=== PATIENT | male | born 1955 | race Caucasian/White ===

== ENCOUNTER 2018-11-04 11:37 | Inpatient (IN) ==
[2018-11-04] MEDS ORDERED: LEVOFLOXACIN INJ 750 MG in PREMIX 1 EACH IV STA (12:49)
[2018-11-04 13:40] LABS: Apearance,Urine Slightly Hazy (Clear); Bilirubin,Urine Negative (Negative); Blood, Urine Negative (Negative); Glucose,Urine (UA) 50 mg/dL (Negative); Ketones,Urine 5 mg/dL (Negative); Nitrite,Urine Negative (Negative); Protein,Urine 30 MG/DL; Urine Color Yellow (Yellow); Urine Specific Gravity 1.013 (1.001-1.035)
[2018-11-04 13:54] LABS: RBC,Urine 0-3 /HPF (0-4); Squamous Epithelial Cell,Urine Few /HPF (0-10)
[2018-11-04 13:56] LABS: Basophils % 0.2 % (0.0-0.8); Eosinophils % 0.1 % (0.00-10.9); Hematocrit 41.3 VOL% (42.0-52.0); Hemoglobin 14.3 GM/DL (14.0-18.0); Immature Granulocytes % 0.7 %; Immature Granulocytes Absolute 0.11 #; Lymphocytes # 0.9 10*3/uL (1.4-4.0); Lymphocytes % 6.3 % (21.2-54.2); Mean Corpuscular HGB Conc 34.6 GM/DL (32-36); Mean Corpuscular Volume 93.9 FL (87-102); Monocytes % 7.1 % (1.7-12.7); Neutrophils % 85.6 % (38.7-73.9); Platelet Count 272 T/CUMM (130-400); Red Cell Distribution Width 12.8 % (9.3-17.3); White Blood Count 14.9 T/CUMM (4-12)
[2018-11-04 14:13] LABS: Calcium 9.2 MG/DL (8.5-10.1); Osmolality,Calculated 252.4 MOS/KG (273-304)
[2018-11-04] MEDS ORDERED: SODIUM CHLORIDE 0.9% 1,000 ML IV STA (15:39)
[2018-11-04] MEDS ORDERED: ONDANSETRON 4 MG/2 ML VIAL IV PRN (16:22)
[2018-11-04] MEDS ORDERED: DOCUSATE SODIUM 100 MG CAPSULE PO PRN (16:22)
[2018-11-04] MEDS ORDERED: ACETAMINOPHEN 325 MG TABLET PO PRN (16:22)
[2018-11-04] MEDS ORDERED: ATROPINE 1 % OPH SOLN 5 ML BOTTLE SL PRN (16:26)
[2018-11-04] MEDS: SODIUM CHLORIDE 0.9% 1,000 ML IV SCH (18:10)
[2018-11-04] MEDS: PIPERACILLIN/TAZOBACTAM 3,375 MG in SODIUM CHLORIDE 0.9% 100 ML IV SCH (18:16)
[2018-11-04] MEDS: SCOPOLAMINE 1.5 MG PATCH TRANSDERM SCH (18:24)
[2018-11-04] MEDS: GLYCOPYRROLATE 1 MG TABLET PO SCH (22:00)
[2018-11-05 02:41] LABS: Basophils % 0.2 % (0.0-0.8); Hematocrit 42.3 VOL% (42.0-52.0); Hemoglobin 14.7 GM/DL (14.0-18.0); Immature Granulocytes % 0.6 %; Immature Granulocytes Absolute 0.08 #; Lymphocytes % 7.3 % (21.2-54.2); Mean Corpuscular HGB Conc 34.8 GM/DL (32-36); Mean Corpuscular Volume 95.3 FL (87-102); Monocytes % 8.6 % (1.7-12.7); Neutrophils % 83.3 % (38.7-73.9); Platelet Count 269 T/CUMM (130-400); Red Blood Count 4.44 MC/CUMM (3.8-5.5); Red Cell Distribution Width 12.9 % (9.3-17.3)
[2018-11-05 03:05] LABS: Blood Urea Nitrogen 6 MG/DL (7-18); Glucose 119 MG/DL (74-106); Osmolality,Calculated 262.5 MOS/KG (273-304)
[2018-11-05] MEDS: PIPERACILLIN/TAZOBACTAM 3,375 MG in SODIUM CHLORIDE 0.9% 100 ML IV SCH ×3 (03:38→18:25)
[2018-11-05] MEDS: POTASSIUM CHLORIDE 20 MEQ/15 ML UDCUP PER TUBE PRN ×5 (04:15→14:27)
[2018-11-05] MEDS: SODIUM CHLORIDE 0.9% 1,000 ML IV SCH ×2 (07:52→21:12)
[2018-11-05] MEDS: CYANOCOBALAMIN 500 MCG TABLET PO SCH (08:01)
[2018-11-05] MEDS: CHOLECALCIFEROL 1,000 UNIT TABLET PO SCH (08:02)
[2018-11-05] MEDS: ASCORBIC ACID 500 MG TABLET PO SCH (08:02)
[2018-11-05] MEDS: GLYCOPYRROLATE 1 MG TABLET PO SCH ×3 (08:02→21:20)
[2018-11-05] MEDS: VITAMIN E 400 UNIT CAPSULE PO SCH (08:03)
[2018-11-05] MEDS: VITAMIN A 2400 UNIT PO SCH (08:04)
[2018-11-05] MEDS: LANSOPRAZOLE ODT 30 MG TABLET PER TUBE SCH (08:04)
[2018-11-05] MEDS: CETIRIZINE 10 MG TABLET PO SCH (08:06)
[2018-11-05] MEDS: LEVOFLOXACIN INJ 750 MG in PREMIX 1 EACH IV SCH (14:26)
[2018-11-05] MEDS: ALBUTEROL/IPRATROPIUM 3 ML NEB RESP TX SCH ×2 (14:55→19:36)
[2018-11-05] MEDS: MENTHOL/ZINC OXIDE OINT 71 GM JAR TOP SCH ×2 (17:31→21:20)
[2018-11-06] MEDS: PIPERACILLIN/TAZOBACTAM 3,375 MG in SODIUM CHLORIDE 0.9% 100 ML IV SCH ×3 (01:21→18:30)
[2018-11-06] MEDS: ALBUTEROL/IPRATROPIUM 3 ML NEB RESP TX SCH ×4 (01:51→19:14)
[2018-11-06 02:52] LABS: Basophils # 0.1 10*3/uL (0.0-0.2); Basophils % 0.4 % (0.0-0.8); Eosinophils % 0.2 % (0.00-10.9); Hemoglobin 14.7 GM/DL (14.0-18.0); Immature Granulocytes % 1.7 %; Immature Granulocytes Absolute 0.26 #; Lymphocytes # 1.6 10*3/uL (1.4-4.0); Mean Corpuscular HGB Conc 33.4 GM/DL (32-36); Mean Corpuscular Volume 99.3 FL (87-102); Mean Platelet Volume 9.7 FL (9.6-12.0); Monocytes % 9.6 % (1.7-12.7); Neutrophils % 78.1 % (38.7-73.9); Platelet Count 280 T/CUMM (130-400); Red Blood Count 4.43 MC/CUMM (3.8-5.5); Red Cell Distribution Width 13.2 % (9.3-17.3); White Blood Count 15.6 T/CUMM (4-12)
[2018-11-06 03:09] LABS: Blood Urea Nitrogen 6 MG/DL (7-18); Calcium 8.9 MG/DL (8.5-10.1); Glucose 118 MG/DL (74-106); Osmolality,Calculated 260.7 MOS/KG (273-304)
[2018-11-06] MEDS: POTASSIUM CHLORIDE 20 MEQ/15 ML UDCUP PER TUBE PRN (03:53)
[2018-11-06] MEDS ORDERED: LIDOCAINE 2% 20 ML VIAL RESP TX ONE (07:45)
[2018-11-06] MEDS ORDERED: LIDOCAINE 1% 20 ML VIAL MISC INJ ONE (07:45)
[2018-11-06] MEDS: ASCORBIC ACID 500 MG TABLET PO SCH (08:42)
[2018-11-06] MEDS: CETIRIZINE 10 MG TABLET PO SCH (08:43)
[2018-11-06] MEDS: CYANOCOBALAMIN 500 MCG TABLET PO SCH (08:43)
[2018-11-06] MEDS: VITAMIN E 400 UNIT CAPSULE PO SCH (08:43)
[2018-11-06] MEDS: CHOLECALCIFEROL 1,000 UNIT TABLET PO SCH (08:43)
[2018-11-06] MEDS: LANSOPRAZOLE ODT 30 MG TABLET PER TUBE SCH (08:44)
[2018-11-06] MEDS: VITAMIN A 2400 UNIT PO SCH (08:45)
[2018-11-06] MEDS: MENTHOL/ZINC OXIDE OINT 71 GM JAR TOP SCH ×2 (08:46→21:26)
[2018-11-06] MEDS: GLYCOPYRROLATE 1 MG TABLET PO SCH ×3 (08:50→21:26)
[2018-11-06] MEDS: SODIUM CHLORIDE 0.9% 1,000 ML IV SCH (12:33)
[2018-11-06] MEDS: LEVOFLOXACIN INJ 750 MG in PREMIX 1 EACH IV SCH (15:41)
[2018-11-06] MEDS ORDERED: diphenhydrAMINE CAP 25 MG CAPSULE PO ONE (21:37)
[2018-11-07] MEDS: ALBUTEROL/IPRATROPIUM 3 ML NEB RESP TX SCH ×4 (00:59→19:40)
[2018-11-07] MEDS: PIPERACILLIN/TAZOBACTAM 3,375 MG in SODIUM CHLORIDE 0.9% 100 ML IV SCH ×3 (03:03→17:13)
[2018-11-07 04:59] LABS: Basophils # 0.1 10*3/uL (0.0-0.2); Basophils % 0.4 % (0.0-0.8); Eosinophils # 0.1 10*3/uL (0.0-0.87); Eosinophils % 0.8 % (0.00-10.9); Hemoglobin 14.2 GM/DL (14.0-18.0); Immature Granulocytes % 1.9 %; Immature Granulocytes Absolute 0.28 #; Lymphocytes # 1.2 10*3/uL (1.4-4.0); Lymphocytes % 8.4 % (21.2-54.2); Mean Corpuscular HGB Conc 32.3 GM/DL (32-36); Mean Corpuscular Volume 99.1 FL (87-102); Mean Platelet Volume 9.5 FL (9.6-12.0); Monocytes % 7.7 % (1.7-12.7); Neutrophils % 80.8 % (38.7-73.9); Platelet Count 290 T/CUMM (130-400); Red Blood Count 4.44 MC/CUMM (3.8-5.5); Red Cell Distribution Width 13.1 % (9.3-17.3); White Blood Count 14.8 T/CUMM (4-12)
[2018-11-07 08:13] LABS: Blood Urea Nitrogen 6 MG/DL (7-18); Calcium 8.9 MG/DL (8.5-10.1); Glucose 99 MG/DL (74-106); Osmolality,Calculated 265.2 MOS/KG (273-304)
[2018-11-07] MEDS: GLYCOPYRROLATE 1 MG TABLET PO SCH ×3 (08:40→20:27)
[2018-11-07] MEDS: VITAMIN A 2400 UNIT PO SCH (08:40)
[2018-11-07] MEDS: LANSOPRAZOLE ODT 30 MG TABLET PER TUBE SCH (08:40)
[2018-11-07] MEDS: MENTHOL/ZINC OXIDE OINT 71 GM JAR TOP SCH ×2 (08:40→20:29)
[2018-11-07] MEDS: CYANOCOBALAMIN 500 MCG TABLET PO SCH (08:41)
[2018-11-07] MEDS: CHOLECALCIFEROL 1,000 UNIT TABLET PO SCH (08:41)
[2018-11-07] MEDS: VITAMIN E 400 UNIT CAPSULE PO SCH (08:41)
[2018-11-07] MEDS: ASCORBIC ACID 500 MG TABLET PO SCH (08:41)
[2018-11-07] MEDS: CETIRIZINE 10 MG TABLET PO SCH (08:41)
[2018-11-07] MEDS: POTASSIUM CHLORIDE 20 MEQ/15 ML UDCUP PER TUBE PRN ×4 (08:58→20:29)
[2018-11-07] MEDS: LEVOFLOXACIN INJ 750 MG in PREMIX 1 EACH IV SCH (14:12)
[2018-11-07] MEDS: amLODIPine 5 MG TABLET PO SCH (17:13)
[2018-11-07] MEDS: SCOPOLAMINE 1.5 MG PATCH TRANSDERM SCH (17:13)
[2018-11-07] MEDS: METOPROLOL TARTRATE 25 MG TABLET PO SCH (20:27)
[2018-11-07] MEDS: ENOXAPARIN 40 MG/0.4 ML SYRINGE SUBCUT SCH (20:28)
[2018-11-07] MEDS: ALPRAZolam 0.25 MG TABLET PO SCH (20:28)
[2018-11-08] MEDS: POTASSIUM CHLORIDE 20 MEQ/15 ML UDCUP PER TUBE PRN ×3 (00:08→21:59)
[2018-11-08] MEDS: PIPERACILLIN/TAZOBACTAM 3,375 MG in SODIUM CHLORIDE 0.9% 100 ML IV SCH ×2 (00:08→09:07)
[2018-11-08] MEDS: ALBUTEROL/IPRATROPIUM 3 ML NEB RESP TX SCH ×4 (00:15→19:59)
[2018-11-08 05:10] LABS: Basophils # 0.1 10*3/uL (0.0-0.2); Basophils % 0.4 % (0.0-0.8); Eosinophils # 0.1 10*3/uL (0.0-0.87); Eosinophils % 0.9 % (0.00-10.9); Hematocrit 44.6 VOL% (42.0-52.0); Hemoglobin 14.2 GM/DL (14.0-18.0); Immature Granulocytes % 1.6 %; Immature Granulocytes Absolute 0.21 #; Lymphocytes # 1.2 10*3/uL (1.4-4.0); Mean Corpuscular HGB Conc 31.8 GM/DL (32-36); Mean Corpuscular Volume 100.5 FL (87-102); Mean Platelet Volume 9.5 FL (9.6-12.0); Monocytes % 8.5 % (1.7-12.7); Neutrophils % 79.6 % (38.7-73.9); Platelet Count 284 T/CUMM (130-400); Red Blood Count 4.44 MC/CUMM (3.8-5.5); Red Cell Distribution Width 13.2 % (9.3-17.3); White Blood Count 13.1 T/CUMM (4-12)
[2018-11-08 05:29] LABS: Calcium 9.2 MG/DL (8.5-10.1)
[2018-11-08] MEDS: CHOLECALCIFEROL 1,000 UNIT TABLET PO SCH (09:08)
[2018-11-08] MEDS: VITAMIN E 400 UNIT CAPSULE PO SCH (09:08)
[2018-11-08] MEDS: VITAMIN A 2400 UNIT PO SCH (09:08)
[2018-11-08] MEDS: CETIRIZINE 10 MG TABLET PO SCH (09:09)
[2018-11-08] MEDS: METOPROLOL TARTRATE 25 MG TABLET PO SCH ×2 (09:09→21:59)
[2018-11-08] MEDS: ALPRAZolam 0.25 MG TABLET PO SCH ×2 (09:09→21:59)
[2018-11-08] MEDS: amLODIPine 5 MG TABLET PO SCH (09:10)
[2018-11-08] MEDS: LANSOPRAZOLE ODT 30 MG TABLET PER TUBE SCH (09:10)
[2018-11-08] MEDS: CYANOCOBALAMIN 500 MCG TABLET PO SCH (09:10)
[2018-11-08] MEDS: MENTHOL/ZINC OXIDE OINT 71 GM JAR TOP SCH ×2 (09:10→20:38)
[2018-11-08] MEDS: ASCORBIC ACID 500 MG TABLET PO SCH (09:41)
[2018-11-08] MEDS: GLYCOPYRROLATE 1 MG TABLET PO SCH ×3 (09:42→21:59)
[2018-11-08] MEDS: LEVOFLOXACIN INJ 750 MG in PREMIX 1 EACH IV SCH (14:15)
[2018-11-08] MEDS: ENOXAPARIN 40 MG/0.4 ML SYRINGE SUBCUT SCH (21:59)
[2018-11-09] MEDS: ALBUTEROL/IPRATROPIUM 3 ML NEB RESP TX SCH ×4 (01:04→19:27)
[2018-11-09 05:07] LABS: Basophils # 0.1 10*3/uL (0.0-0.2); Basophils % 0.5 % (0.0-0.8); Eosinophils # 0.2 10*3/uL (0.0-0.87); Eosinophils % 1.3 % (0.00-10.9); Hematocrit 43.7 VOL% (42.0-52.0); Immature Granulocytes % 1.7 %; Immature Granulocytes Absolute 0.23 #; Lymphocytes # 1.3 10*3/uL (1.4-4.0); Lymphocytes % 9.7 % (21.2-54.2); Mean Corpuscular Volume 102.1 FL (87-102); Mean Platelet Volume 9.7 FL (9.6-12.0); Monocytes % 6.6 % (1.7-12.7); Neutrophils % 80.2 % (38.7-73.9); Platelet Count 331 T/CUMM (130-400); Red Blood Count 4.28 MC/CUMM (3.8-5.5); Red Cell Distribution Width 13.4 % (9.3-17.3); White Blood Count 13.7 T/CUMM (4-12)
[2018-11-09 05:22] LABS: Calcium 9.5 MG/DL (8.5-10.1); Osmolality,Calculated 276.8 MOS/KG (273-304)
[2018-11-09] MEDS: MENTHOL/ZINC OXIDE OINT 71 GM JAR TOP SCH ×2 (08:18→21:12)
[2018-11-09] MEDS: VITAMIN A 2400 UNIT PO SCH (09:48)
[2018-11-09] MEDS: VITAMIN E 400 UNIT CAPSULE PO SCH (09:49)
[2018-11-09] MEDS: ASCORBIC ACID 500 MG TABLET PO SCH (09:49)
[2018-11-09] MEDS: GLYCOPYRROLATE 1 MG TABLET PO SCH ×3 (09:49→21:11)
[2018-11-09] MEDS: CETIRIZINE 10 MG TABLET PO SCH (09:51)
[2018-11-09] MEDS: CHOLECALCIFEROL 1,000 UNIT TABLET PO SCH (09:51)
[2018-11-09] MEDS: METOPROLOL TARTRATE 25 MG TABLET PO SCH ×2 (09:51→21:12)
[2018-11-09] MEDS: CYANOCOBALAMIN 500 MCG TABLET PO SCH (09:52)
[2018-11-09] MEDS: LANSOPRAZOLE ODT 30 MG TABLET PER TUBE SCH (09:52)
[2018-11-09] MEDS: amLODIPine 5 MG TABLET PO SCH (09:52)
[2018-11-09] MEDS: ALPRAZolam 0.25 MG TABLET PO SCH ×2 (09:53→21:11)
[2018-11-09] MEDS: cefTAZidime 1,000 MG in SYRINGE 1 EACH IV SCH ×2 (10:51→17:41)
[2018-11-09] MEDS: LEVOFLOXACIN INJ 750 MG in PREMIX 1 EACH IV SCH (14:04)
[2018-11-09] MEDS: ENOXAPARIN 40 MG/0.4 ML SYRINGE SUBCUT SCH (21:11)
[2018-11-10] MEDS: ALBUTEROL/IPRATROPIUM 3 ML NEB RESP TX SCH ×4 (00:27→20:31)
[2018-11-10] MEDS: cefTAZidime 1,000 MG in SYRINGE 1 EACH IV SCH ×3 (02:06→18:26)
[2018-11-10] MEDS: CHOLECALCIFEROL 1,000 UNIT TABLET PO SCH (09:14)
[2018-11-10] MEDS: CETIRIZINE 10 MG TABLET PO SCH (09:14)
[2018-11-10] MEDS: GLYCOPYRROLATE 1 MG TABLET PO SCH ×3 (09:14→21:01)
[2018-11-10] MEDS: VITAMIN A 2400 UNIT PO SCH (09:15)
[2018-11-10] MEDS: VITAMIN E 400 UNIT CAPSULE PO SCH (09:15)
[2018-11-10] MEDS: ALPRAZolam 0.25 MG TABLET PO SCH ×2 (09:15→21:01)
[2018-11-10] MEDS: CYANOCOBALAMIN 500 MCG TABLET PO SCH (09:15)
[2018-11-10] MEDS: ASCORBIC ACID 500 MG TABLET PO SCH (09:15)
[2018-11-10] MEDS: LANSOPRAZOLE ODT 30 MG TABLET PER TUBE SCH (09:15)
[2018-11-10] MEDS: MENTHOL/ZINC OXIDE OINT 71 GM JAR TOP SCH ×2 (09:16→21:01)
[2018-11-10] MEDS: METOPROLOL TARTRATE 25 MG TABLET PO SCH ×2 (10:09→21:01)
[2018-11-10] MEDS: amLODIPine 5 MG TABLET PO SCH (10:09)
[2018-11-10] MEDS: FLUCONAZOLE INJ 200 MG in PREMIX 1 EACH IV SCH (13:10)
[2018-11-10] MEDS: LEVOFLOXACIN INJ 750 MG in PREMIX 1 EACH IV SCH (14:10)
[2018-11-10] MEDS: SCOPOLAMINE 1.5 MG PATCH TRANSDERM SCH (18:25)
[2018-11-10] MEDS: ENOXAPARIN 40 MG/0.4 ML SYRINGE SUBCUT SCH (21:01)
[2018-11-11] MEDS: ALBUTEROL/IPRATROPIUM 3 ML NEB RESP TX SCH ×3 (00:58→13:00)
[2018-11-11] MEDS: cefTAZidime 1,000 MG in SYRINGE 1 EACH IV SCH ×2 (01:40→11:14)
[2018-11-11 06:01] VITALS: BP 114/70
[2018-11-11] MEDS: VITAMIN A 2400 UNIT PO SCH (09:07)
[2018-11-11] MEDS: METOPROLOL TARTRATE 25 MG TABLET PO SCH (09:08)
[2018-11-11] MEDS: CYANOCOBALAMIN 500 MCG TABLET PO SCH (09:08)
[2018-11-11] MEDS: ASCORBIC ACID 500 MG TABLET PO SCH (09:08)
[2018-11-11] MEDS: amLODIPine 5 MG TABLET PO SCH (09:09)
[2018-11-11] MEDS: LANSOPRAZOLE ODT 30 MG TABLET PER TUBE SCH (09:09)
[2018-11-11] MEDS: CHOLECALCIFEROL 1,000 UNIT TABLET PO SCH (09:09)
[2018-11-11] MEDS: VITAMIN E 400 UNIT CAPSULE PO SCH (09:09)
[2018-11-11] MEDS: CETIRIZINE 10 MG TABLET PO SCH (09:09)
[2018-11-11] MEDS: ALPRAZolam 0.25 MG TABLET PO SCH (09:09)
[2018-11-11] MEDS: MENTHOL/ZINC OXIDE OINT 71 GM JAR TOP SCH (09:10)
[2018-11-11] MEDS: GLYCOPYRROLATE 1 MG TABLET PO SCH ×2 (09:26→14:14)
[2018-11-11] MEDS: FLUCONAZOLE INJ 200 MG in PREMIX 1 EACH IV SCH (12:14)
[2018-11-11] MEDS: LEVOFLOXACIN INJ 750 MG in PREMIX 1 EACH IV SCH (14:18)
== END 2018-11-11 14:35 | DRG 167 ==
LOC: EDBD → EDUNIT# → N.ED 11:37 → SUATTDRO 16:22 → N.EDINP 16:22 → N.CC 17:01
PROVIDERS: ADMIT Internal Medicine; ATTEND Internal Medicine

== ENCOUNTER 2021-03-09 10:22 | Inpatient (IN) ==
[2021-03-09] MEDS ORDERED: NOREPINEPHRINE 8 MG in SODIUM CHLORIDE 0.9% 242 ML IV PRN (10:37)
[2021-03-09] MEDS ORDERED: LACTATED RINGERS 2,000 ML IV ONE (10:41)
[2021-03-09] MEDS ORDERED: SODIUM CHLORIDE 0.9% 2,000 ML IV STA (11:01)
[2021-03-09 11:09] LABS: ABG Base Excess -6.6 MMOL/L (-2.5-2.5); ABG HCO3 21.4 MMOL/L (20-26); ABG Oxygen Saturation 99.3 % (95-100); ABG PCO2 54.4 MM HG (35-48); ABG PH 7.213 (7.35-7.45); ABG PO2 265.1 MM HG (80-95); ABG TCO2 23.1 MMOL/L (23-27)
[2021-03-09 11:56] LABS: Basophils % 0.1 % (0.0-0.8); Hematocrit 34.7 VOL% (42.0-52.0); Hemoglobin 11.7 GM/DL (14.0-18.0); Immature Granulocytes % 0.6 %; Lymphocytes # 0.5 10*3/uL (1.4-4.0); Mean Corpuscular HGB Conc 33.7 GM/DL (32-36); Mean Corpuscular Volume 95.6 FL (87-102); Mean Platelet Volume 10.1 FL (9.6-12.0); Neutrophils % 93.3 % (38.7-73.9); Platelet Count 309 T/CUMM (130-400); Red Blood Count 3.63 MC/CUMM (3.8-5.5); Red Cell Distribution Width 13.9 % (9.3-17.3); White Blood Count 17.4 T/CUMM (4-12)
[2021-03-09 12:11] LABS: Bacteria,Urine Occasional /HPF (Few); Bilirubin,Urine Negative (Negative); Blood, Urine Negative (Negative); Glucose,Urine (UA) >=500 mg/dL (Negative); Ketones,Urine Negative (Negative); Mucus,Urine Occasional /LPF (Occasional); Nitrite,Urine Negative (Negative); Protein,Urine 100 MG/DL; RBC,Urine 3 /HPF (0-4); Urine Appearance Slightly Hazy (Clear); Urine Color Amber (Yellow); Urine Specific Gravity 1.008 (1.001-1.035)
[2021-03-09 12:17] LABS: Albumin 2.2 G/DL (3.4-5.0); Bilirubin,Total 2.2 MG/DL (0.20-1.00); Calcium 7.3 MG/DL (8.5-10.1); Osmolality,Calculated 249.8 MOS/KG (273-304); Potassium 4.3 MMOL/L (3.5-5.1); Total Protein 5.9 G/DL (6.4-8.2)
[2021-03-09 12:19] LABS: INR 1.2; PT Patient Result 12.9 SECS (10.5-12.0)
[2021-03-09] MEDS ORDERED: VANCOMYCIN INJ 1,250 MG in SODIUM CHLORIDE 0.9% 250 ML IV STA (12:19)
[2021-03-09] MEDS ORDERED: CEFEPIME 2,000 MG in SODIUM CHLORIDE 0.9% 100 ML IV STA ×2 (12:20→13:11)
[2021-03-09 12:44] LABS: Band Neutrophils 5 % (0-10); Segmented Neutrophils 91 % (50-85); Total Cells Counted 100
[2021-03-09 12:45] LABS: Macrocytosis Slight; Microcytosis Slight; Polychromasia Slight; Spherocytes Slight
[2021-03-09] MEDS ORDERED: GLUCAGON 1 MG VIAL IM PRN (12:45)
[2021-03-09] MEDS ORDERED: ONDANSETRON 4 MG/2 ML VIAL IV PRN (12:45)
[2021-03-09] MEDS ORDERED: DEXTROSE 50% 25 GM/50 ML VIAL IV PRN (12:45)
[2021-03-09 12:46] LABS: Platelet Estimate Normal
[2021-03-09] MEDS ORDERED: DEXTROSE 5% NACL 0.9% 1,000 ML IV SCH (13:00)
[2021-03-09] MEDS: ENOXAPARIN 40 MG/0.4 ML SYRINGE SUBCUT SCH (13:39)
[2021-03-09] MEDS ORDERED: ALBUTEROL 2.5 MG/3 ML NEB RESP TX PRN (14:43)
[2021-03-09] MEDS: SODIUM CHLORIDE 0.9% 1,000 ML IV SCH (17:38)
[2021-03-09] MEDS: PANTOPRAZOLE 40 MG VIAL IV SCH (17:38)
[2021-03-09] MEDS: MEROPENEM 500 MG in SODIUM CHLORIDE 0.9% 100 ML IV SCH ×2 (17:39→20:38)
[2021-03-09] MEDS ORDERED: SODIUM CHLORIDE 0.9% 1,000 ML IV ONE (17:51)
[2021-03-09] MEDS: INSULIN LISPRO 100 UNIT/ML SUBCUT SCH (17:56)
[2021-03-09] MEDS ORDERED: CEFEPIME 1,000 MG in SODIUM CHLORIDE 0.9% 100 ML IV SCH (20:00)
[2021-03-09 20:47] LABS: Calcium 7.9 MG/DL (8.5-10.1); Osmolality,Calculated 247.9 MOS/KG (273-304); Potassium 3.5 MMOL/L (3.5-5.1)
[2021-03-09] MEDS ORDERED: SODIUM CHLORIDE 0.9% 500 ML IV ONE (22:03)
[2021-03-10] MEDS: INSULIN LISPRO 100 UNIT/ML SUBCUT SCH ×4 (00:06→17:56)
[2021-03-10] MEDS: SODIUM CHLORIDE 0.9% 1,000 ML IV SCH ×2 (01:55→09:44)
[2021-03-10] MEDS ORDERED: VANCOMYCIN INJ 1,250 MG in SODIUM CHLORIDE 0.9% 250 ML IV SCH (02:00)
[2021-03-10 02:16] LABS: Calcium 7.1 MG/DL (8.5-10.1); Osmolality,Calculated 255.5 MOS/KG (273-304); Potassium 3.1 MMOL/L (3.5-5.1)
[2021-03-10] MEDS ORDERED: SODIUM CHLORIDE 0.9% 500 ML IV ONE (02:45)
[2021-03-10] MEDS: MEROPENEM 500 MG in SODIUM CHLORIDE 0.9% 100 ML IV SCH ×4 (03:37→20:27)
[2021-03-10] MEDS: POTASSIUM CHLORIDE RIDER 10 MEQ/100 ML PREMIX IV PRN ×2 (03:41→04:38)
[2021-03-10 04:29] LABS: ABG Base Excess -9.7 MMOL/L (-2.5-2.5); ABG HCO3 16.7 MMOL/L (20-26); ABG PCO2 52.2 MM HG (35-48); ABG TCO2 17.9 MMOL/L (23-27); Allen Test Positive; Pt O2 Delivery Device Ventilator
[2021-03-10] MEDS ORDERED: SODIUM BICARBONATE 50 MEQ/50 ML VIAL IV ONE (05:07)
[2021-03-10 06:07] LABS: Basophils % 0.1 % (0.0-0.8); Hematocrit 30.7 VOL% (42.0-52.0); Hemoglobin 10.3 GM/DL (14.0-18.0); Immature Granulocytes Absolute 0.21 #; Lymphocytes # 0.4 10*3/uL (1.4-4.0); Lymphocytes % 1.9 % (21.2-54.2); Mean Corpuscular HGB Conc 33.6 GM/DL (32-36); Mean Corpuscular Volume 96.8 FL (87-102); Monocytes % 5.2 % (1.7-12.7); Neutrophils % 91.8 % (38.7-73.9); Platelet Count 248 T/CUMM (130-400); Red Blood Count 3.17 MC/CUMM (3.8-5.5); Red Cell Distribution Width 13.9 % (9.3-17.3); White Blood Count 20.3 T/CUMM (4-12)
[2021-03-10 06:20] LABS: Calcium 7.2 MG/DL (8.5-10.1); Osmolality,Calculated 260.1 MOS/KG (273-304); Potassium 3.6 MMOL/L (3.5-5.1)
[2021-03-10 06:33] LABS: Band Neutrophils 10 % (0-10); Lymphocytes 3 % (20-55); Platelet Estimate Normal; Segmented Neutrophils 81 % (50-85); Total Cells Counted 100
[2021-03-10] MEDS ORDERED: MAGNESIUM SULF RIDER 2 GM/50 ML PREMIX IV PRN (08:51)
[2021-03-10] MEDS ORDERED: MAGNESIUM SULF RIDER 4 GM/100 ML PREMIX IV PRN (08:51)
[2021-03-10] MEDS ORDERED: SODIUM CHLORIDE 0.9% 1,000 ML IV ONE (09:04)
[2021-03-10] MEDS ORDERED: SODIUM BICARB INJ 50 MEQ in SODIUM CHLORIDE 0.45% 1,000 ML IV SCH (09:30)
[2021-03-10 09:36] LABS: ABG Base Excess -5.3 MMOL/L (-2.5-2.5); ABG Oxygen Saturation 96.6 % (95-100); ABG PCO2 50.9 MM HG (35-48); ABG PH 7.253 (7.35-7.45); ABG PO2 79.4 MM HG (80-95); ABG TCO2 23.5 MMOL/L (23-27)
[2021-03-10] MEDS: AZITHROMYCIN INJ 500 MG in SODIUM CHLORIDE 0.9% 250 ML IV SCH (10:00)
[2021-03-10] MEDS: SODIUM BICARB INJ 100 MEQ in SODIUM CHLORIDE 0.45% 1,000 ML IV SCH ×2 (11:34→22:34)
[2021-03-10] MEDS: ENOXAPARIN 40 MG/0.4 ML SYRINGE SUBCUT SCH (12:02)
[2021-03-10] MEDS: PANTOPRAZOLE 40 MG VIAL IV SCH (15:12)
[2021-03-10 16:25] LABS: ABG Base Excess -5.4 MMOL/L (-2.5-2.5); ABG HCO3 19.9 MMOL/L (20-26); ABG Oxygen Saturation 95.7 % (95-100); ABG PCO2 54.4 MM HG (35-48); ABG PH 7.229 (7.35-7.45); ABG PO2 78.4 MM HG (80-95)
[2021-03-10] MEDS: ALBUTEROL/IPRATROPIUM 3 ML NEB RESP TX SCH (18:56)
[2021-03-10] MEDS: ACETAMINOPHEN 325 MG TABLET PO PRN (20:25)
[2021-03-10 22:24] LABS: Osmolality,Calculated 267.8 MOS/KG (273-304)
[2021-03-11] MEDS: ALBUTEROL/IPRATROPIUM 3 ML NEB RESP TX SCH ×4 (00:35→19:07)
[2021-03-11] MEDS: POTASSIUM CHLORIDE RIDER 10 MEQ/100 ML PREMIX IV PRN ×8 (01:32→18:09)
[2021-03-11] MEDS: MEROPENEM 500 MG in SODIUM CHLORIDE 0.9% 100 ML IV SCH ×4 (03:39→21:09)
[2021-03-11 03:48] LABS: Basophils % 0.1 % (0.0-0.8); Eosinophils % 0.1 % (0.00-10.9); Hematocrit 28.7 VOL% (42.0-52.0); Hemoglobin 9.5 GM/DL (14.0-18.0); Immature Granulocytes % 1.4 %; Immature Granulocytes Absolute 0.21 #; Lymphocytes # 0.5 10*3/uL (1.4-4.0); Lymphocytes % 3.3 % (21.2-54.2); Mean Corpuscular HGB Conc 33.1 GM/DL (32-36); Mean Corpuscular Volume 96.6 FL (87-102); Monocytes % 5.6 % (1.7-12.7); Neutrophils % 89.5 % (38.7-73.9); Platelet Count 231 T/CUMM (130-400); Red Blood Count 2.97 MC/CUMM (3.8-5.5); Red Cell Distribution Width 14.4 % (9.3-17.3); White Blood Count 14.7 T/CUMM (4-12)
[2021-03-11 04:06] LABS: Albumin 1.7 G/DL (3.4-5.0); Calcium 7.3 MG/DL (8.5-10.1); Osmolality,Calculated 262.2 MOS/KG (273-304); Potassium 3.7 MMOL/L (3.5-5.1); Total Protein 5.4 G/DL (6.4-8.2)
[2021-03-11 04:26] LABS: Allen Test Positive; Pt O2 Delivery Device Ventilator
[2021-03-11 04:27] LABS: ABG Base Excess -4.1 MMOL/L (-2.5-2.5); ABG Oxygen Saturation 98.2 % (95-100); ABG PCO2 64.3 MM HG (35-48); ABG TCO2 23.4 MMOL/L (23-27)
[2021-03-11 04:28] LABS: ABG PH 7.198 (7.35-7.45)
[2021-03-11] MEDS: INSULIN LISPRO 100 UNIT/ML SUBCUT SCH ×5 (06:41→23:57)
[2021-03-11 07:08] LABS: Band Neutrophils 4 % (0-10); Lymphocytes 1 % (20-55); Platelet Estimate Normal; Segmented Neutrophils 93 % (50-85); Total Cells Counted 100
[2021-03-11 07:09] LABS: Microcytosis Slight
[2021-03-11] MEDS ORDERED: ALPRAZolam 0.25 MG TABLET PO PRN (08:10)
[2021-03-11] MEDS: SODIUM BICARB INJ 100 MEQ in SODIUM CHLORIDE 0.45% 1,000 ML IV SCH (08:30)
[2021-03-11] MEDS ORDERED: PNEUMOCOCCAL VACCINE (13 VALENT) 0.5 ML SYRINGE IM ONE (09:00)
[2021-03-11] MEDS ORDERED: ALPRAZolam 0.25 MG TABLET PO SCH (09:00)
[2021-03-11] MEDS: MULTIVITAMIN LIQUID (CENTRUM) 60 ML BOTTLE PEG SCH (09:14)
[2021-03-11] MEDS: ALPRAZolam 0.25 MG TABLET PO PRN ×2 (09:14→21:08)
[2021-03-11] MEDS ORDERED: FUROSEMIDE 20 MG/2 ML VIAL IV ONE (10:02)
[2021-03-11] MEDS: SODIUM CHLORIDE 0.9% 1,000 ML IV SCH (10:23)
[2021-03-11] MEDS: SCOPOLAMINE 1.5 MG PATCH TRANSDERM SCH (10:29)
[2021-03-11] MEDS: AZITHROMYCIN INJ 500 MG in SODIUM CHLORIDE 0.9% 250 ML IV SCH (10:34)
[2021-03-11 10:57] LABS: ABG Base Excess 0.1 MMOL/L (-2.5-2.5); ABG HCO3 24.6 MMOL/L (20-26); ABG Oxygen Saturation 99.1 % (95-100); ABG PCO2 35.4 MM HG (35-48); ABG PH 7.439 (7.35-7.45); ABG TCO2 22.1 MMOL/L (23-27)
[2021-03-11] MEDS: MORPHINE 2 MG/1 ML SYRINGE IV PRN ×2 (11:55→21:06)
[2021-03-11] MEDS ORDERED: ADENOSINE 6 MG/2 ML VIAL ONE ×2 (12:07→12:16)
[2021-03-11] MEDS ORDERED: ADENOSINE 6 MG/2 ML VIAL IV ONE ×2 (12:11→12:15)
[2021-03-11] MEDS ORDERED: METOPROLOL TARTRATE 5 MG/5 ML VIAL IV ONE ×3 (12:17→12:23)
[2021-03-11] MEDS: ENOXAPARIN 40 MG/0.4 ML SYRINGE SUBCUT SCH (13:17)
[2021-03-11] MEDS: METOPROLOL TARTRATE 25 MG TABLET PO SCH ×2 (13:17→21:08)
[2021-03-11] MEDS: GLYCOPYRROLATE 1 MG TABLET PEG SCH ×2 (15:30→21:08)
[2021-03-11] MEDS: PANTOPRAZOLE 40 MG VIAL IV SCH (15:31)
[2021-03-11] MEDS: DILTIAZEM INJ 100 MG in SODIUM CHLORIDE 0.9% 100 ML IV SCH (17:51)
[2021-03-11] MEDS: ACETAMINOPHEN 325 MG TABLET PO PRN (21:08)
[2021-03-11] MEDS ORDERED: SODIUM CHLORIDE 0.9% 500 ML IV ONE (23:07)
[2021-03-11] MEDS ORDERED: NOREPINEPHRINE 4 MG/4 ML VIAL IV ONE (23:09)
[2021-03-11] MEDS: NOREPINEPHRINE 8 MG in SODIUM CHLORIDE 0.9% 242 ML IV PRN (23:19)
[2021-03-11 23:45] LABS: ABG Base Excess -0.9 MMOL/L (-2.5-2.5); ABG HCO3 23.7 MMOL/L (20-26); ABG Oxygen Saturation 99.1 % (95-100); ABG PH 7.394 (7.35-7.45); ABG TCO2 22.2 MMOL/L (23-27)
[2021-03-12] MEDS: MORPHINE 2 MG/1 ML SYRINGE IV PRN ×2 (01:16→18:24)
[2021-03-12] MEDS: POTASSIUM CHLORIDE RIDER 10 MEQ/100 ML PREMIX IV PRN (01:32)
[2021-03-12] MEDS: ALBUTEROL/IPRATROPIUM 3 ML NEB RESP TX SCH ×4 (02:19→19:42)
[2021-03-12] MEDS: MEROPENEM 500 MG in SODIUM CHLORIDE 0.9% 100 ML IV SCH ×4 (03:15→20:42)
[2021-03-12 04:37] LABS: Basophils # 0.1 10*3/uL (0.0-0.2); Basophils % 0.2 % (0.0-0.8); Eosinophils # 0.1 10*3/uL (0.0-0.87); Eosinophils % 0.3 % (0.00-10.9); Hemoglobin 8.7 GM/DL (14.0-18.0); Immature Granulocytes % 2.3 %; Lymphocytes # 0.6 10*3/uL (1.4-4.0); Lymphocytes % 2.7 % (21.2-54.2); Mean Corpuscular HGB Conc 33.5 GM/DL (32-36); Mean Corpuscular Volume 95.2 FL (87-102); Mean Platelet Volume 9.7 FL (9.6-12.0); Monocytes % 3.7 % (1.7-12.7); Neutrophils % 90.8 % (38.7-73.9); Platelet Count 256 T/CUMM (130-400); Red Blood Count 2.73 MC/CUMM (3.8-5.5); Red Cell Distribution Width 14.4 % (9.3-17.3)
[2021-03-12 04:57] LABS: Calcium 7.2 MG/DL (8.5-10.1); Osmolality,Calculated 270.7 MOS/KG (273-304); Potassium 4.3 MMOL/L (3.5-5.1)
[2021-03-12 04:58] LABS: Hypochromasia 1+; Lymphocytes 9 % (20-55); Microcytosis 1+; Platelet Estimate Adequate; Segmented Neutrophils 88 % (50-85); Total Cells Counted 100
[2021-03-12 05:02] LABS: ABG Base Excess -1.4 MMOL/L (-2.5-2.5); ABG HCO3 23.3 MMOL/L (20-26); ABG Oxygen Saturation 99.7 % (95-100); ABG PH 7.467 (7.35-7.45); ABG TCO2 19.9 MMOL/L (23-27)
[2021-03-12] MEDS ORDERED: ALBUMIN 25% 25 GM/100 ML VIAL IV ONE (05:31)
[2021-03-12] MEDS: INSULIN LISPRO 100 UNIT/ML SUBCUT SCH ×3 (07:15→17:50)
[2021-03-12 07:27] VITALS: BP 106/70
[2021-03-12] MEDS: SODIUM CHLORIDE 0.9% 1,000 ML IV SCH (08:24)
[2021-03-12] MEDS: NOREPINEPHRINE 8 MG in SODIUM CHLORIDE 0.9% 242 ML IV PRN ×2 (08:26→22:51)
[2021-03-12] MEDS ORDERED: GENTAMICIN INJ 120 MG/100 ML PREMIX IV SCH (09:00)
[2021-03-12] MEDS: GLYCOPYRROLATE 1 MG TABLET PEG SCH ×3 (09:11→20:40)
[2021-03-12] MEDS: METOPROLOL TARTRATE 25 MG TABLET PO SCH ×2 (09:11→20:40)
[2021-03-12] MEDS: CHOLECALCIFEROL 1,000 UNIT TABLET PEG SCH (09:11)
[2021-03-12] MEDS: CYANOCOBALAMIN 500 MCG TABLET PEG SCH (09:11)
[2021-03-12] MEDS: DOCUSATE SODIUM 100 MG CAPSULE PO SCH (09:12)
[2021-03-12] MEDS: VITAMIN E 400 UNIT CAPSULE PEG SCH (09:12)
[2021-03-12] MEDS: MULTIVITAMIN LIQUID (CENTRUM) 60 ML BOTTLE PEG SCH (09:17)
[2021-03-12] MEDS: AZITHROMYCIN INJ 500 MG in SODIUM CHLORIDE 0.9% 250 ML IV SCH (09:44)
[2021-03-12] MEDS ORDERED: SODIUM PHOSPHATE INJ 30 MMOL in SODIUM CHLORIDE 0.9% 250 ML IV ONE (10:00)
[2021-03-12] MEDS: PANTOPRAZOLE 40 MG VIAL IV SCH ×2 (10:28→20:38)
[2021-03-12] MEDS: GENTAMICIN INJ 440 MG in SODIUM CHLORIDE 0.9% 100 ML IV SCH (10:44)
[2021-03-12] MEDS: DILTIAZEM INJ 100 MG in SODIUM CHLORIDE 0.9% 100 ML IV SCH ×2 (13:01→17:05)
[2021-03-12] MEDS: ALPRAZolam 0.25 MG TABLET PO PRN ×2 (13:10→20:40)
[2021-03-12] MEDS: ENOXAPARIN 40 MG/0.4 ML SYRINGE SUBCUT SCH (13:11)
[2021-03-12] MEDS ORDERED: DIGOXIN 0.5 MG/2 ML AMP IV ONE ×2 (16:46→17:15)
[2021-03-12] MEDS ORDERED: AMIODARONE INJ 150 MG in DEXTROSE 5% 100 ML IV ONE (18:22)
[2021-03-12] MEDS: ZINC OXIDE PASTE 113 GM TUBE TOP SCH ×2 (18:29→20:57)
[2021-03-12] MEDS ORDERED: METOPROLOL TARTRATE 5 MG/5 ML VIAL IV ONE (20:12)
[2021-03-13] MEDS: INSULIN LISPRO 100 UNIT/ML SUBCUT SCH ×4 (00:05→17:42)
[2021-03-13] MEDS: ALBUTEROL/IPRATROPIUM 3 ML NEB RESP TX SCH ×4 (00:36→18:40)
[2021-03-13] MEDS: MEROPENEM 500 MG in SODIUM CHLORIDE 0.9% 100 ML IV SCH ×4 (03:23→20:49)
[2021-03-13 03:39] LABS: Basophils # 0.1 10*3/uL (0.0-0.2); Basophils % 0.2 % (0.0-0.8); Eosinophils # 0.1 10*3/uL (0.0-0.87); Eosinophils % 0.2 % (0.00-10.9); Hematocrit 30.1 VOL% (42.0-52.0); Hemoglobin 9.6 GM/DL (14.0-18.0); Immature Granulocytes % 4.7 %; Immature Granulocytes Absolute 1.17 #; Lymphocytes # 0.5 10*3/uL (1.4-4.0); Mean Corpuscular HGB Conc 31.9 GM/DL (32-36); Mean Corpuscular Volume 98.7 FL (87-102); Mean Platelet Volume 9.8 FL (9.6-12.0); Neutrophils % 88.9 % (38.7-73.9); Platelet Count 282 T/CUMM (130-400); Red Blood Count 3.05 MC/CUMM (3.8-5.5); Red Cell Distribution Width 14.7 % (9.3-17.3); White Blood Count 24.8 T/CUMM (4-12)
[2021-03-13 03:48] LABS: ABG Base Excess -6.8 MMOL/L (-2.5-2.5); ABG HCO3 18.8 MMOL/L (20-26); ABG Oxygen Saturation 90.8 % (95-100); ABG PCO2 64.1 MM HG (35-48); ABG PO2 68.1 MM HG (80-95); ABG TCO2 21.4 MMOL/L (23-27); Allen Test Positive; Pt O2 Delivery Device Ventilator
[2021-03-13 03:55] LABS: Calcium 7.5 MG/DL (8.5-10.1); Osmolality,Calculated 277.2 MOS/KG (273-304); Potassium 3.6 MMOL/L (3.5-5.1)
[2021-03-13 04:10] LABS: ABG PH 7.166 (7.35-7.45)
[2021-03-13 04:20] LABS: Band Neutrophils 5 % (0-10); Lymphocytes 3 % (20-55); Platelet Estimate Normal; Segmented Neutrophils 90 % (50-85); Total Cells Counted 100
[2021-03-13 04:21] LABS: Hypochromasia Slight
[2021-03-13] MEDS: SODIUM CHLORIDE 0.9% 1,000 ML IV SCH (05:15)
[2021-03-13] MEDS: DOCUSATE SODIUM 100 MG CAPSULE PO SCH (08:25)
[2021-03-13] MEDS: GLYCOPYRROLATE 1 MG TABLET PEG SCH ×3 (08:25→20:48)
[2021-03-13] MEDS: CHOLECALCIFEROL 1,000 UNIT TABLET PEG SCH (08:25)
[2021-03-13] MEDS: VITAMIN E 400 UNIT CAPSULE PEG SCH (08:26)
[2021-03-13] MEDS: METOPROLOL TARTRATE 25 MG TABLET PO SCH ×2 (08:26→20:48)
[2021-03-13] MEDS: CYANOCOBALAMIN 500 MCG TABLET PEG SCH (08:26)
[2021-03-13] MEDS ORDERED: FUROSEMIDE 40 MG/4 ML VIAL IV ONE (08:27)
[2021-03-13] MEDS: PANTOPRAZOLE 40 MG VIAL IV SCH ×2 (08:32→21:45)
[2021-03-13] MEDS ORDERED: AZITHROMYCIN INJ 250 MG in SODIUM CHLORIDE 0.9% 250 ML IV SCH (09:00)
[2021-03-13] MEDS: MULTIVITAMIN LIQUID (CENTRUM) 60 ML BOTTLE PEG SCH (09:09)
[2021-03-13] MEDS: AZITHROMYCIN INJ 250 MG in SODIUM CHLORIDE 0.9% 250 ML IV SCH (10:50)
[2021-03-13] MEDS: ENOXAPARIN 40 MG/0.4 ML SYRINGE SUBCUT SCH (12:21)
[2021-03-13] MEDS: DILTIAZEM INJ 100 MG in SODIUM CHLORIDE 0.9% 100 ML IV SCH (12:41)
[2021-03-13] MEDS: GENTAMICIN INJ 440 MG in SODIUM CHLORIDE 0.9% 100 ML IV SCH (13:24)
[2021-03-13] MEDS: MORPHINE 2 MG/1 ML SYRINGE IV PRN (14:04)
[2021-03-13 16:08] LABS: ABG Base Excess -6.1 MMOL/L (-2.5-2.5); ABG HCO3 19.2 MMOL/L (20-26); ABG PO2 59.3 MM HG (80-95); ABG TCO2 21.1 MMOL/L (23-27); Allen Test Positive; Pt O2 Delivery Device Ventilator
[2021-03-13 16:10] LABS: ABG PH 7.198 (7.35-7.45)
[2021-03-13] MEDS: AMITRIPTYLINE 25 MG TABLET PO SCH (20:48)
[2021-03-13] MEDS: ZINC OXIDE PASTE 113 GM TUBE TOP SCH (21:43)
[2021-03-14] MEDS: INSULIN LISPRO 100 UNIT/ML SUBCUT SCH ×5 (00:35→23:52)
[2021-03-14] MEDS: NOREPINEPHRINE 8 MG in SODIUM CHLORIDE 0.9% 242 ML IV PRN ×3 (01:18→22:47)
[2021-03-14] MEDS: ALBUTEROL/IPRATROPIUM 3 ML NEB RESP TX SCH ×4 (01:22→19:47)
[2021-03-14] MEDS: MEROPENEM 500 MG in SODIUM CHLORIDE 0.9% 100 ML IV SCH ×4 (03:52→20:30)
[2021-03-14 04:54] LABS: Basophils % 0.2 % (0.0-0.8); Eosinophils % 0.1 % (0.00-10.9); Hematocrit 28.3 VOL% (42.0-52.0); Immature Granulocytes % 5.5 %; Immature Granulocytes Absolute 0.95 #; Lymphocytes # 0.6 10*3/uL (1.4-4.0); Lymphocytes % 3.3 % (21.2-54.2); Mean Corpuscular HGB Conc 31.8 GM/DL (32-36); Mean Corpuscular Volume 98.6 FL (87-102); Mean Platelet Volume 10.1 FL (9.6-12.0); Monocytes % 2.9 % (1.7-12.7); Platelet Count 250 T/CUMM (130-400); Red Blood Count 2.87 MC/CUMM (3.8-5.5); Red Cell Distribution Width 14.8 % (9.3-17.3); White Blood Count 17.3 T/CUMM (4-12)
[2021-03-14 04:58] LABS: Calcium 7.7 MG/DL (8.5-10.1); Osmolality,Calculated 283.8 MOS/KG (273-304); Potassium 3.5 MMOL/L (3.5-5.1)
[2021-03-14 05:18] LABS: Band Neutrophils 11 % (0-10); Hypochromasia Slight; Lymphocytes 8 % (20-55); Microcytosis 1+; Segmented Neutrophils 77 % (50-85); Total Cells Counted 100
[2021-03-14] MEDS: ZINC OXIDE PASTE 113 GM TUBE TOP SCH ×3 (07:46→21:28)
[2021-03-14] MEDS: SCOPOLAMINE 1.5 MG PATCH TRANSDERM SCH (10:29)
[2021-03-14] MEDS: PANTOPRAZOLE 40 MG VIAL IV SCH ×2 (10:30→20:30)
[2021-03-14] MEDS: METOPROLOL TARTRATE 25 MG TABLET PO SCH ×2 (10:30→20:32)
[2021-03-14] MEDS: methylPREDNISolone SOD SUC 40 MG/1 ML VIAL IV SCH ×3 (10:30→20:30)
[2021-03-14] MEDS: GLYCOPYRROLATE 1 MG TABLET PEG SCH ×3 (10:31→20:33)
[2021-03-14] MEDS: CHOLECALCIFEROL 1,000 UNIT TABLET PEG SCH (10:31)
[2021-03-14] MEDS: ALPRAZolam 0.25 MG TABLET PO PRN (10:31)
[2021-03-14] MEDS: VITAMIN E 400 UNIT CAPSULE PEG SCH (10:31)
[2021-03-14] MEDS: DOCUSATE SODIUM 100 MG CAPSULE PO SCH (10:31)
[2021-03-14] MEDS: CYANOCOBALAMIN 500 MCG TABLET PEG SCH (10:31)
[2021-03-14] MEDS: MULTIVITAMIN LIQUID (CENTRUM) 60 ML BOTTLE PEG SCH (10:33)
[2021-03-14] MEDS: AZITHROMYCIN INJ 250 MG in SODIUM CHLORIDE 0.9% 250 ML IV SCH (10:55)
[2021-03-14] MEDS: DILTIAZEM INJ 100 MG in SODIUM CHLORIDE 0.9% 100 ML IV SCH (12:33)
[2021-03-14] MEDS: MORPHINE 2 MG/1 ML SYRINGE IV PRN ×3 (13:13→23:53)
[2021-03-14] MEDS: ENOXAPARIN 40 MG/0.4 ML SYRINGE SUBCUT SCH (14:38)
[2021-03-14] MEDS: AMITRIPTYLINE 25 MG TABLET PO SCH (20:24)
[2021-03-15] MEDS: ALBUTEROL/IPRATROPIUM 3 ML NEB RESP TX SCH ×4 (01:03→19:07)
[2021-03-15] MEDS: MEROPENEM 500 MG in SODIUM CHLORIDE 0.9% 100 ML IV SCH ×4 (02:00→21:41)
[2021-03-15] MEDS: methylPREDNISolone SOD SUC 40 MG/1 ML VIAL IV SCH ×4 (02:22→21:38)
[2021-03-15] MEDS ORDERED: NOREPINEPHRINE 4 MG/4 ML VIAL IV ONE ×3 (04:49→16:03)
[2021-03-15] MEDS: NOREPINEPHRINE 8 MG in SODIUM CHLORIDE 0.9% 242 ML IV PRN ×5 (04:53→19:15)
[2021-03-15 05:02] LABS: ABG Base Excess -6.2 MMOL/L (-2.5-2.5); ABG HCO3 19.3 MMOL/L (20-26); ABG Oxygen Saturation 97.9 % (95-100); ABG PCO2 54.6 MM HG (35-48); ABG PH 7.211 (7.35-7.45); ABG TCO2 20.7 MMOL/L (23-27)
[2021-03-15 05:28] LABS: Basophils % 0.1 % (0.0-0.8); Hemoglobin 9.5 GM/DL (14.0-18.0); Immature Granulocytes % 8.4 %; Immature Granulocytes Absolute 2.71 #; Lymphocytes # 0.7 10*3/uL (1.4-4.0); Lymphocytes % 2.1 % (21.2-54.2); Mean Corpuscular HGB Conc 31.7 GM/DL (32-36); Mean Corpuscular Volume 99.7 FL (87-102); Mean Platelet Volume 10.2 FL (9.6-12.0); Monocytes % 1.6 % (1.7-12.7); NRBC # 0.03 10*3/uL; Neutrophils % 87.8 % (38.7-73.9); Platelet Count 328 T/CUMM (130-400); Red Blood Count 3.01 MC/CUMM (3.8-5.5); Red Cell Distribution Width 15.1 % (9.3-17.3); White Blood Count 32.1 T/CUMM (4-12)
[2021-03-15 05:51] LABS: Calcium 8.4 MG/DL (8.5-10.1); Osmolality,Calculated 286.8 MOS/KG (273-304); Potassium 4.3 MMOL/L (3.5-5.1)
[2021-03-15 05:53] LABS: Band Neutrophils 5 % (0-10); Lymphocytes 2 % (20-55); Platelet Estimate Adequate; Segmented Neutrophils 90 % (50-85); Total Cells Counted 100
[2021-03-15 05:54] LABS: Hypochromasia 1+; Microcytosis 1+
[2021-03-15] MEDS: INSULIN LISPRO 100 UNIT/ML SUBCUT SCH ×3 (06:13→18:09)
[2021-03-15] MEDS: MORPHINE 2 MG/1 ML SYRINGE IV PRN ×4 (07:17→21:43)
[2021-03-15] MEDS: PANTOPRAZOLE 40 MG VIAL IV SCH ×2 (09:13→21:40)
[2021-03-15] MEDS: CYANOCOBALAMIN 500 MCG TABLET PEG SCH (09:16)
[2021-03-15] MEDS: DOCUSATE SODIUM 100 MG CAPSULE PO SCH (09:16)
[2021-03-15] MEDS: METOPROLOL TARTRATE 25 MG TABLET PO SCH ×2 (09:16→21:40)
[2021-03-15] MEDS: VITAMIN E 400 UNIT CAPSULE PEG SCH (09:16)
[2021-03-15] MEDS: GLYCOPYRROLATE 1 MG TABLET PEG SCH ×3 (09:16→21:43)
[2021-03-15] MEDS: CHOLECALCIFEROL 1,000 UNIT TABLET PEG SCH (09:16)
[2021-03-15] MEDS: ALPRAZolam 0.25 MG TABLET PO PRN ×2 (09:16→21:43)
[2021-03-15] MEDS: MULTIVITAMIN LIQUID (CENTRUM) 60 ML BOTTLE PEG SCH (09:16)
[2021-03-15] MEDS: ZINC OXIDE PASTE 113 GM TUBE TOP SCH ×2 (09:17→21:39)
[2021-03-15] MEDS ORDERED: DIGOXIN 0.5 MG/2 ML AMP ONE (11:10)
[2021-03-15] MEDS ORDERED: DIGOXIN 0.5 MG/2 ML AMP IV ONE (11:13)
[2021-03-15] MEDS ORDERED: AMIODARONE INJ 150 MG in DEXTROSE 5% 100 ML IV PRN (11:16)
[2021-03-15] MEDS: AZITHROMYCIN INJ 250 MG in SODIUM CHLORIDE 0.9% 250 ML IV SCH (12:04)
[2021-03-15] MEDS: DILTIAZEM INJ 100 MG in SODIUM CHLORIDE 0.9% 100 ML IV SCH (12:05)
[2021-03-15] MEDS ORDERED: AZITHROMYCIN INJ 250 MG in SODIUM CHLORIDE 0.9% 250 ML IV SCH (12:30)
[2021-03-15] MEDS: ENOXAPARIN 40 MG/0.4 ML SYRINGE SUBCUT SCH (14:56)
[2021-03-15] MEDS: AMITRIPTYLINE 25 MG TABLET PO SCH (21:39)
[2021-03-15] MEDS: NOREPINEPHRINE 16 MG in SODIUM CHLORIDE 0.9% 484 ML IV PRN (21:48)
[2021-03-16] MEDS: ALBUTEROL/IPRATROPIUM 3 ML NEB RESP TX SCH ×4 (00:05→18:42)
[2021-03-16] MEDS: MEROPENEM 500 MG in SODIUM CHLORIDE 0.9% 100 ML IV SCH ×4 (03:10→20:20)
[2021-03-16] MEDS: methylPREDNISolone SOD SUC 40 MG/1 ML VIAL IV SCH ×4 (03:10→20:20)
[2021-03-16 04:15] LABS: ABG Base Excess -9.5 MMOL/L (-2.5-2.5); ABG HCO3 16.7 MMOL/L (20-26); ABG Oxygen Saturation 92.5 % (95-100); ABG PO2 72.4 MM HG (80-95); ABG TCO2 19.3 MMOL/L (23-27)
[2021-03-16 04:18] LABS: ABG PH 7.127 (7.35-7.45)
[2021-03-16] MEDS: NOREPINEPHRINE 16 MG in SODIUM CHLORIDE 0.9% 484 ML IV PRN ×3 (05:23→19:49)
[2021-03-16] MEDS: INSULIN LISPRO 100 UNIT/ML SUBCUT SCH ×4 (05:23→18:39)
[2021-03-16 06:10] LABS: Calcium 8.3 MG/DL (8.5-10.1); Osmolality,Calculated 292.7 MOS/KG (273-304); Potassium 4.4 MMOL/L (3.5-5.1)
[2021-03-16] MEDS: MORPHINE 2 MG/1 ML SYRINGE IV PRN ×3 (08:09→20:34)
[2021-03-16] MEDS ORDERED: GENTAMICIN INJ 440 MG in SODIUM CHLORIDE 0.9% 100 ML IV ONE (09:00)
[2021-03-16] MEDS: VITAMIN E 400 UNIT CAPSULE PEG SCH (10:00)
[2021-03-16] MEDS: DOCUSATE SODIUM 100 MG CAPSULE PO SCH (10:00)
[2021-03-16] MEDS: ZINC OXIDE PASTE 113 GM TUBE TOP SCH ×2 (10:00→20:20)
[2021-03-16] MEDS: PANTOPRAZOLE 40 MG VIAL IV SCH ×2 (10:00→20:20)
[2021-03-16] MEDS: CHOLECALCIFEROL 1,000 UNIT TABLET PEG SCH (10:02)
[2021-03-16] MEDS: GLYCOPYRROLATE 1 MG TABLET PEG SCH ×3 (10:03→20:20)
[2021-03-16] MEDS: ALPRAZolam 0.25 MG TABLET PO PRN ×2 (10:03→20:35)
[2021-03-16] MEDS: CYANOCOBALAMIN 500 MCG TABLET PEG SCH (10:03)
[2021-03-16] MEDS: MULTIVITAMIN LIQUID (CENTRUM) 60 ML BOTTLE PEG SCH (10:03)
[2021-03-16] MEDS: METOPROLOL TARTRATE 25 MG TABLET PO SCH ×2 (10:03→21:14)
[2021-03-16] MEDS ORDERED: GENTAMICIN INJ 440 MG in SODIUM CHLORIDE 0.9% 100 ML IV PRN (11:19)
[2021-03-16] MEDS: DILTIAZEM INJ 100 MG in SODIUM CHLORIDE 0.9% 100 ML IV SCH (12:30)
[2021-03-16] MEDS: ENOXAPARIN 40 MG/0.4 ML SYRINGE SUBCUT SCH (15:00)
[2021-03-16] MEDS: AMITRIPTYLINE 25 MG TABLET PO SCH (20:20)
[2021-03-16] MEDS: MINERAL OIL/PETROLATUM OPH OINT 3.5 GM TUBE BOTH EYES SCH (20:34)
[2021-03-17] MEDS: INSULIN LISPRO 100 UNIT/ML SUBCUT SCH ×4 (00:58→17:35)
[2021-03-17] MEDS: ALBUTEROL/IPRATROPIUM 3 ML NEB RESP TX SCH ×4 (01:04→19:38)
[2021-03-17] MEDS: methylPREDNISolone SOD SUC 40 MG/1 ML VIAL IV SCH ×4 (02:30→21:12)
[2021-03-17 03:05] LABS: ABG Base Excess -10.2 MMOL/L (-2.5-2.5); ABG HCO3 16.2 MMOL/L (20-26); ABG Oxygen Saturation 97.8 % (95-100); ABG TCO2 20.4 MMOL/L (23-27)
[2021-03-17 03:08] LABS: ABG PCO2 73.3 MM HG (35-48); ABG PH 7.064 (7.35-7.45)
[2021-03-17] MEDS: NOREPINEPHRINE 16 MG in SODIUM CHLORIDE 0.9% 484 ML IV PRN ×2 (03:25→15:04)
[2021-03-17] MEDS: DOCUSATE SODIUM 100 MG CAPSULE PO SCH (08:47)
[2021-03-17] MEDS: METOPROLOL TARTRATE 25 MG TABLET PO SCH ×2 (08:47→21:11)
[2021-03-17] MEDS: MULTIVITAMIN LIQUID (CENTRUM) 60 ML BOTTLE PEG SCH (08:47)
[2021-03-17] MEDS: CHOLECALCIFEROL 1,000 UNIT TABLET PEG SCH (08:48)
[2021-03-17] MEDS: CYANOCOBALAMIN 500 MCG TABLET PEG SCH (08:48)
[2021-03-17] MEDS: VITAMIN E 400 UNIT CAPSULE PEG SCH (08:48)
[2021-03-17] MEDS: GLYCOPYRROLATE 1 MG TABLET PEG SCH ×3 (08:48→21:11)
[2021-03-17] MEDS ORDERED: GENTAMICIN INJ 440 MG in SODIUM CHLORIDE 0.9% 100 ML IV ONE ×2 (09:00→11:30)
[2021-03-17] MEDS: SCOPOLAMINE 1.5 MG PATCH TRANSDERM SCH (10:03)
[2021-03-17] MEDS: PANTOPRAZOLE 40 MG VIAL IV SCH ×2 (10:06→21:11)
[2021-03-17] MEDS: ZINC OXIDE PASTE 113 GM TUBE TOP SCH ×2 (10:09→21:10)
[2021-03-17] MEDS: MINERAL OIL/PETROLATUM OPH OINT 3.5 GM TUBE BOTH EYES SCH ×2 (10:56→21:11)
[2021-03-17] MEDS: DILTIAZEM INJ 100 MG in SODIUM CHLORIDE 0.9% 100 ML IV SCH (12:49)
[2021-03-17] MEDS: ENOXAPARIN 40 MG/0.4 ML SYRINGE SUBCUT SCH (15:02)
[2021-03-17] MEDS: MORPHINE 2 MG/1 ML SYRINGE IV PRN ×4 (20:01→21:48)
[2021-03-17] MEDS ORDERED: LORazepam 2 MG/1 ML VIAL IV PRN (21:00)
[2021-03-17] MEDS: AMITRIPTYLINE 25 MG TABLET PO SCH (21:10)
== END 2021-03-17 21:56 | disposition expired | DRG 870 ==
LOC: EDBD → EDUNIT# → N.ED 10:22 → N.EDINP 12:35 → SUATTDRO 12:35 → N.CVR 16:27 → N.ICU 03-11 19:49
PROVIDERS: ADMIT Hospitalist; ATTEND Internal Medicine